=== PATIENT | female | born 1975 | race African-American/Black ===

== ENCOUNTER 2017-10-28 11:05 | Outpatient (CLI) | payer OTHER | END 2017-10-28 11:06 | disposition home or self-care (01) | LOC: BICRAD 11:05 | PROVIDERS: ATTEND Internal Medicine | DX: Z02.71 Encounter for disability determination (principal); M47.896 Other spondylosis, lumbar region; M41.9 Scoliosis, unspecified | CPT/HCPCS: 72100 ==